=== PATIENT | male | born 1995 | race Caucasian/White ===

== ENCOUNTER 2018-12-20 17:28 | Emergency (ER) | payer BC, SELFPAY ==
[2018-12-20 17:29] VITALS: BP 135/78; PULSE 82; RESP 16; TEMP 36.6; O2SAT 97; BMI 23.0
--- NOTE | 2018-12-20 18:17 | ED.VIS.EYE ---
History of Present Illness Chief Complaint: Eye Problem Narrative: Patient presenting secondary to a foreign body in the left eye. Patient works as a mig tig welder, states that he started to have a foreign body sensation in his left eye today. He reports that he can see a black dot on the bottom of his cornea. He reports mild discomfort, foreign body sensation, and eye watering. No blurriness. Minimal amount of photophobia is noted. Past Medical History - Allergies and Home Meds Allergies/Adverse Reactions: Allergies Penicillins Allergy (Verified 03/01/16 22:57) Unknown Primary Care Physician: Carl Diallo MD [STAFF PHYSICIAN] - (Call the office tomorrow for followup for corneal rust ring) Past Medical History: None Smoking Status: Current some day smoker Review of Systems Eyes: Reports: - - Foreign body sensation left eye Physical Exam Eyelid: Left eyelid everted, No foreign body Left Conjunctiva/Sclera: - - Diffuse injection of conjunctiva and sclera Left Cornea: - - Metallic foreign body with rust ring noted at the 6:00 portion of the patient's cornea with negative Carlos Alberto sign and positive floor seen dye uptake Extraocular Motion: Normal exam Pupils: PERRL Anterior chamber: Normal exam Vital Signs/Narrative: Vital Signs Temp Pulse Resp BP Pulse Ox 12/20/18 17:29 97.8 F 82 16 135/78 H 97 Inital Vital Signs reviewed: Yes General: Well nourished, Well developed Head: Normocephalic Cardiovascular: Regular rate, Regular rhythm Respiratory: No distress Skin: Normal color Neurological: Alert, Oriented x3 Diagnostic/Tx/Re-eval - Treatment and Re-Evaluation Foreign body removal: Cotton tip swab, Eye ghazal Residual rust ring: Yes Removed with eye ghazal: No Tetracaine: left eye Antibiotic: left eye - Medical Decision Making Patient presented secondary to ocular foreign body. This was identified on slit-lamp exam. I was able to remove the foreign body with a cotton tip swab. I attempted to remove the rust ring with the eye bur, but was unsuccessful on full removal. Patient will be placed on antibiotic ointment and instructed to follow-up with ophthalmology for definitive removal of the rust ring. Disposition: Home ED Disposition - Plan for ED Patient: Disposition: Home or Assisted Living Diagnosis: Corneal foreign body Instructions: CORNEAL FOREIGN BODY, Removed, w/ Rust Ring Referrals: Carl Diallo MD [STAFF PHYSICIAN] - (Call the office tomorrow for followup for corneal rust ring)
== END 2018-12-20 18:32 | disposition home or self-care (01) ==
PROVIDERS: Emergency Provider Emergency Medicine; Family Provider Family Medicine; PCP Family Medicine
DX: T15.02XA Foreign body in cornea, left eye, initial encounter (principal); X58.XXXA Exposure to other specified factors, initial encounter; Y93.9 Activity, unspecified; Y92.9 Unspecified place or not applicable; F17.200 Nicotine dependence, unspecified, uncomplicated
CPT/HCPCS: 99283

== ENCOUNTER 2020-08-18 12:47 | Emergency (ER) | payer BC, SELFPAY ==
[2020-08-18 12:48] VITALS: BP 136/72; PULSE 104; RESP 14; TEMP 36.8; O2SAT 97; BMI 28.4
--- NOTE | 2020-08-18 14:11 | CT_ITS ---
STUDY: CT ABDOMEN AND PELVIS WITH CONTRAST REASON FOR EXAM: Male, 24 years old. Suprapubic pain. Chills/nausea. RADIATION DOSAGE (If Supplied By Facility): CTDIvol = ( 12.7 ) mGy, DLP = ( 935.7 ) mGycm TECHNIQUE: Transaxial images were obtained from the dome of the diaphragm to the symphysis pubis without oral contrast. 100ML ISOVUE 300 was administered. Sagittal and coronal images were reconstructed. Individualized dose optimization techniques were used for this CT. COMPARISON: Comparison is made with prior study dated 12/02/2014. FINDINGS: The visualized lung bases are unremarkable. The visualized portions of the heart are within normal limits. Normal liver. Normal gallbladder and extrahepatic biliary system. Normal spleen. Normal pancreas. Normal bilateral adrenal glands. Normal right kidney. Normal left kidney. Normal visualized stomach. Normal small intestine. Normal colon. The appendix is visualized and appears normal. Normal abdominal aorta. Normal inferior vena cava. Normal retroperitoneum. Normal urinary bladder. Normal abdominal wall. Normal osseous structures. CT/Abdomen/Pelvis W IV Cont ONLY IMPRESSION: Normal enhanced CT of the abdomen and pelvis. Electronically Signed: Mic Dimas MD at 15:42 EDT , Service support ,
[2020-08-18] MEDS: 0.9% Normal Saline 1,000 ML 1000 ML IV (14:29)
[2020-08-18] MEDS: Ketorolac 15 MG/ML Vial IV (14:29)
[2020-08-18 14:44] LABS: Absolute Neutrophil Count 11.1 X10^3/uL (2.0-7.7); Basophil# 0.02 X10^3/uL; Basophil% 0.1 % (0-1); Hematocrit 45.4 % (40-54); Hemoglobin 15.6 g/dL (13.0-16.5); Lymphocyte % 7.3 % (19-41); Mean Corp Hgb Conc 34.4 g/dL (32-36); Mean Corpuscular Hgb 29.4 pg (27.0-32.0); Mean Corpuscular Volume 85.5 fL (80-94); Mean Platelet Vol. 10.6 fl (6.2-12.0); Monocyte# 1.47 X10^3/uL; Monocyte% 10.8 % (0-10); NRBC Flagged by Analyzer 0 % (0-5); Neutrophil # 11.07 X10^3/uL (2.7-7.7); Neutrophil % 81.4 % (47-70); Platelet Count 239 K/mm3 (150-450); RBC Distribution Width CV 11.9 % (11.6-14.6); RBC Distribution Width SD 37.3 fl (35.1-43.9); Red Blood Count 5.31 M/mm3 (4.6-6.2); White Blood Count 13.6 K/mm3 (4.4-11.0)
[2020-08-18 14:59] LABS: ALB/GLOB Ratio 1.3 RATIO (0.9-2.4); AST(SGOT) 14 U/L (15-37); Alanine Aminotransfer ALT/SGPT 35 U/L (16-61); Albumin, Serum 4.3 g/dL (3.2-5.0); Alkaline Phosphatase 70 U/L (45-117); Anion Gap 5 (5-15); BUN 11 mg/dL (7-18); BUN/Creat Ratio 13.3 RATIO (10-20); Calcium,Total 9.2 mg/dL (8.5-10.1); Chloride 104 mmol/L (98-107); Creatinine, Serum 0.83 mg/dL (0.70-1.30); EST Glomerular Filtration Rate 120 mL/min (>60); Est Glom Filt Rate - Afr Amer 146 mL/min (>60); Estimated Creatinine Clearance 150.63 ml/min; Globulin 3.4 g/dL (2.2-4.2); Glucose 92 mg/dL (74-106); Potassium 3.7 mmol/L (3.5-5.1); Protein, Total 7.7 g/dL (6.4-8.2); Sodium Level 137 mmol/L (136-145)
[2020-08-18 15:24] LABS: Bacteria 0 SEEN /hpf (None Seen); Mucous, Urine 0 SEEN /hpf (<or=2+); Red Blood Cells-Urine 0 SEEN /hpf (0-5); Squamous Epithelial Cells - UA 0 SEEN /hpf (0-5); White Blood Cells 0 SEEN /hpf (0-5)
[2020-08-18 15:25] LABS: Color, Urine Yellow (Yellow); Glucose, Dipstick Normal (Normal); Ketone-Dipstick Negative (Negative); Leukocyte Esterase-Dipstick Negative /ul (Negative); Nitrite-Dipstick Negative (Negative); Occult Blood-Urine Negative /ul (Negative); Protein-Dipstick Negative (Negative); Urine Bilirubin Dipstick Negative (Negative); Urine Clarity Clear (Clear); Urine Urobilinogen Normal (Normal)
[2020-08-18 16:18] VITALS: BP 127/95; PULSE 80; RESP 16; O2SAT 100
--- NOTE | 2020-08-18 16:27 | ED.DCSUM_ITS ---
- ER Visit Summary Date of Service: 08/18/20 Chief Complaint: Back pain History of Present Illness: The patient is a [address] Betts. He reports that 3 days ago he lifted his 3-year-old son out of the car seat and twisted to the right. He had the abrupt onset of right lower back pain. Describes it as a stabbing pain is 10 of 10 at worst and 4-10 currently. Is worsened by movement or twisting. Is relieved by remaining still. Is not taken anything for pain. He denies any groin numbness. No problems with his bowels or his bladder. Reports that he has numbness in his right great toe that last approximately 1 minute while he was walking. It is not numb now. Does state this pain seems to radiate around the front of his right thigh to the level of his knee. Patient denies any IV drug abuse. He denies any red flags. Patient reports that he has chills. He has abdominal pain that began yesterday. States that this is in his testicles and is an aching pain. It radiates up into his lower abdomen. Has had nausea without vomiting or diarrhea. No dysuria or frequency. No penile discharge. Physical Examination: Vitals: Stable. Afebrile. General: A&O x 3. NAD. Cardiovascular exam: Regular rate and rhythm, no murmur, rub or gallop. Respiratory exam: Clear to auscultation bilaterally. No wheezes or stridor. Abdominal exam: Soft, nontender, nondistended, normal bowel sounds. No peritoneal signs. Back: Diffuse moderate tenderness to palpation over the lumbar spine and the paraspinous musculature in the lumbar region. No point tenderness. Negative straight leg bilaterally. 5/5 DF, PF, EHL bilaterally. Normal sensation to light touch throughout. Extremity: No clubbing, cyanosis, or edema. Test Results: CBC shows a white count of 13.6 with 81 7 neutrophils, 7 lymphocytes, and 11 monocytes. Chem-7 is normal. LFTs show an AST of 14. UA is normal. Covid is negative. Clinical Impression(s) from Imaging Studies Abdomen/Pelvis CT 08/18/20 14:11 IMPRESSION: Normal enhanced CT of the abdomen and pelvis. Electronically Signed: Mic Dimas MD at 15:42 EDT , Service support , Emergency Department Course and Treatment: Patient had an IV placed. Is given a liter normal saline. Is given Toradol IV. He is resting more comfortably. Treatment Plan: Had a prolonged discussion the patient at this time I do not have an explanation for his fever. However, I did discuss them that I do not think that his back pain is the source of his fever. He has no risk factors for an epidural abscess. Patient will be discharged with prescription for Sullivan, naproxen, and Zofran. Instructed to follow-up his primary care physician in 3 to 5 days if not improving. Return to the emergency department for any worsening symptoms. Disposition: To home in improved and stable condition. Impression: 1. Low back pain. 2. Fever, uncertain cause. This note was generated with [employer] dictation software. It may contain incorrect words, spelling, and punctuation that were not noted in review of the chart prior to signing ED Disposition - Plan for ED Patient: Disposition: Home or Assisted Living Instructions: ED Back Pain (Acute or Chronic), ED FUO Adult Prescriptions: Naproxen [Naprosyn] 500 mg PO BID #14 tablet Prescription Printed Hydrocodone Bitart/Apap 5-325 [Sullivan 5MG-325MG] 1 tablet PO Q6H PRN PRN 3 Days #10 tab PRN Reason: Pain Prescription Printed Ondansetron [Zofran Odt] 4 mg PO Q8H PRN PRN #10 tablet PRN Reason: Nausea Prescription Printed Referrals: Estevan Betts MD [Primary Care Provider] - 1-2 Days if not improving
== END 2020-08-18 16:35 | disposition home or self-care (01) ==
LOC: ED 14:50
PROVIDERS: Emergency Provider Emergency Medicine; PCP Family Medicine
DX: M54.5 Low back pain (principal); R50.9 Fever, unspecified; R11.0 Nausea; X50.1XXA Overexertion from prolonged static or awkward postures, initial encounter; Y93.9 Activity, unspecified; Y92.9 Unspecified place or not applicable; F17.290 Nicotine dependence, other tobacco product, uncomplicated
CPT/HCPCS: 74177; 80053; 81001; 85025; 87426; 96361; 96374; 99283; J7030; Q9967